=== PATIENT | male | born 1945 | race Caucasian/White ===

== ENCOUNTER 2017-06-12 13:34 | Emergency (ER) | payer MEDICARE, SELFPAY ==
[2017-06-12 13:34] VITALS: BP 164/99; PULSE 128; RESP 20; TEMP 36.9; O2SAT 96; BMI 33.0
--- NOTE | 2017-06-12 13:50 | EKG12_ITS ---
Test Reason : SWELLING Blood Pressure : / mmHG Vent. Rate : 106 BPM Atrial Rate : 111 BPM P-R Int : 000 ms QRS Dur : 066 ms QT Int : 286 ms P-R-T Axes : 000 070 074 degrees QTc Int : 379 ms Atrial fibrillation Abnormal ECG Poor R wave progression Low voltage Confirmed by ROD HUMPHREY ([id number]), publication editor RED CH ([id number]) on 06/14/2017 2:22:15 PM Referred By: BELEM Confirmed By:ROD HUMPHREY
--- NOTE | 2017-06-12 13:50 | RAD_ITS ---
STUDY: X-RAY CHEST REASON FOR EXAM: Male, 72 years old. Increasing shortness of breath. TECHNIQUE: Single AP portable view of the chest. COMPARISON: Comparison is made with prior study dated February 05, 2016. FINDINGS: EKG electrodes are seen. Mild increased markings in the lingular segment of the left upper lobe. This is new as compared to prior study. This may represent atelectasis and/or early infiltrate. There is no demonstrated pleural abnormality. There is mild cardiac enlargement. Normal mediastinum and erika. Normal visualized pulmonary arteries. There is atherosclerotic tortuosity of the aortic arch and descending thoracic aorta. Normal visualized thoracic spine. Normal visualized ribs, clavicles, and shoulders. There is no demonstrated abnormality of the visualized soft tissue structures of the upper abdomen. RAD/Chest 1 View (Portable) IMPRESSION: Increased markings in the lingular segment of the left upper lobe suggestive of a atelectasis and/or infiltrate. Follow-up is recommended. Electronically Signed: Alonso Tristan MD at 14:15 EDT Tel [phone], Service support ,
[2017-06-12 14:13] VITALS: BP 146/107; PULSE 97; RESP 23; O2SAT 97
[2017-06-12 14:16] VITALS: O2SAT 97
[2017-06-12 14:19] LABS: Absolute Lymphocyte Count 1.38 X10^3/ul (0.83-4.51); Absolute Neutrophil Count 6.8 X10^3/uL (2.0-7.7); Basophil# 0.02 X10^3/uL; Basophil% 0.2 % (0-1); Eosinophil# 0.15 X10^3/uL; Eosinophils% 1.6 % (0-5); Hematocrit 40.9 % (40-54); Hemoglobin 13.5 g/dl (13.0-16.5); Lymphocyte # 1.38 X10^3/ul (4.0); Lymphocyte % 15.1 % (19-41); Mean Corpuscular Hgb 30.4 pg (27.0-32.0); Mean Corpuscular Volume 92.1 fL (80-94); Mean Platelet Vol. 10.4 fl (6.2-12.0); Monocyte# 0.76 X10^3/uL; Monocyte% 8.3 % (0-10); Neutrophil % 74.7 % (47-70); Platelet Count 212 K/mm3 (150-450); RBC Distribution Width CV 13.3 % (11.6-14.6); RBC Distribution Width SD 44.2 fl (35.1-43.9); Red Blood Count 4.44 M/mm3 (4.6-6.2); White Blood Count 9.1 K/mm3 (4.4-11.0)
[2017-06-12 14:21] LABS: POSITIVE COUNT NO; POSITIVE DIFFERENTIAL NO; POSITIVE MORPHOLOGY NO
[2017-06-12 14:34] LABS: Anion Gap 7 (5-15); BUN 12 mg/dL (7-18); BUN/Creat Ratio 10.8 RATIO (10-20); Calcium,Total 8.8 mg/dL (8.5-10.1); Chloride 104 mmol/L (98-107); Creatinine, Serum 1.11 mg/dL (0.70-1.30); EST Glomerular Filtration Rate 69 mL/min (>60); Est Glom Filt Rate - Afr Amer 84 mL/min (>60); Estimated Creatinine Clearance 64.07 ml/min; Glucose 169 mg/dL (74-106); Sodium Level 139 mmol/L (136-145)
--- NOTE | 2017-06-12 14:38 | RAD_ITS ---
STUDY: X-RAY CHEST REASON FOR EXAM: Male, 72 years old. Dyspnea and shortness of breath. TECHNIQUE: Lateral view. COMPARISON: Comparison is made with prior study done earlier today. FINDINGS: Mild increased markings in the lingular segment of the left upper lobe. Multilevel disc space narrowing and spondylosis of the thoracic spine. RAD/Chest 1 View IMPRESSION: Increased markings in the lingular segment of the left upper lobe. Electronically Signed: Alonso Tristan MD at 15:08 EDT Tel [phone], Service support ,
[2017-06-12 14:45] LABS: BNP,B-Type NATRIURETIC PEPTIDE 167.8 pg/mL (0-100)
[2017-06-12 15:31] VITALS: BP 159/76; PULSE 61; RESP 21; O2SAT 97
--- NOTE | 2017-06-12 15:34 | ED.DCSUM_ITS ---
- ER Visit Summary Date of Service: 06/12/17 Chief Complaint: Shortness of breath History of Present Illness: The patient is a 72 M who goes to the [facility]. He reports he has shortness of breath began approximate 1 month ago and has been gradually worsening. States that is worsened by exertion or laying flat. Is relieved by rest. He denies any cough, fever, chills, chest pain/pressure/ tightness, or palpitations. He reports that he has had bilateral ankle swelling for the past 3 weeks. Physical Examination: Vitals: Stable. Afebrile. General: Well-nourished and well-developed. Head: Normocephalic atraumatic. Neck: Supple, no lymphadenopathy. No JVD. Nontender. Cardiovascular: Irregular rhythm. No murmurs. Respiratory: No respiratory distress. Mild wheezing bilaterally with decreased air movement. Abdominal: Soft, nontender, nondistended, normal bowel sounds. No guarding, rebound, or peritoneal signs. Back: Nontender. Extremities: Nontender, 2+ pitting edema of his lower extremities bilaterally. Skin: Normal color, no rash. Neurologic: Alert and oriented ?3. Cranial nerves II through XII are intact. Normal strength and sensation. Psych: Normal affect. Test Results: Chest x-ray shows increased markings in the lingular segment of the left upper lobe with a question of atelectasis and/or infiltrate. EKG is A. fib at [address] changes. Troponins negative. PT BILINGUAL HR GENERALIST is minimally elevated at 167.8. Chem-7 more for glucose 169. CBC is marked for 7 neutrophils 75 lymphs lites 15. Emergency Department Course and Treatment: During his stay in the emergency department the patient's heart rate ranged anywhere from the 90s to the 130s. Currently he is on 12.5 mg of Lopressor twice daily. He is already anticoagulated with Pradaxa. He feels well and would like to go home. Treatment Plan: I am unable to reach the patient's primary care physician or mergers and acquisitions attorney at the [facility] He will have his Lopressor increased from 12.5-25 mg twice a day. I suspect that his RVR is actually the source of his lower extremity edema. He is given prescription for Lasix 40 mg a day for the next 5 days. He will also be placed on Zithromax and prednisone for COPD. He is instructed to follow-up with the [facility] soon as possible. Return to the emergency department for any worsening symptoms. Disposition: To home in improved and stable condition. Impression: 1. Atrial fibrillation. 2. Coagulopathy on Pradaxa. 3. COPD exacerbation. 4. Peripheral edema. This note was generated with HipLink dictation software. It may contain incorrect words, spelling, and punctuation that were not noted in review of the chart prior to signing ED Disposition - Plan for ED Patient: Disposition: Home or Assisted Living Chief Complaint: Shortness of Breath Instructions: ED Afib, ED COPD Flare Prescriptions: Azithromycin [Zithromax] 250 mg PO DAILY #6 tablet Furosemide [Lasix] 40 mg PO DAILY #5 tablet Prednisone [Deltasone] 60 mg PO DAILY #15 tablet Metoprolol Tartrate [Lopressor (Beta Zia)] 25 mg PO BID #60 tablet [facility]errals: [facility] [Primary Care Provider] - As soon as possible
[2017-06-12] MEDS: predniSONE 20 MG Tablet 60 MG PO (15:44)
[2017-06-12] MEDS: Metoprolol Tartrate 25 MG Tablet PO (15:44)
[2017-06-12] MEDS: Azithromycin 250 MG Tablet 500 MG PO (15:44)
[2017-06-12 15:46] VITALS: BP 147/90; PULSE 99; RESP 22; O2SAT 96
== END 2017-06-12 15:54 | disposition home or self-care (01) ==
PROVIDERS: Emergency Provider Emergency Medicine
DX: I48.91 Unspecified atrial fibrillation (principal); D68.9 Coagulation defect, unspecified; J44.1 Chronic obstructive pulmonary disease with (acute) exacerbation; R60.9 Edema, unspecified; E11.9 Type 2 diabetes mellitus without complications; I10 Essential (primary) hypertension; E78.00 Pure hypercholesterolemia, unspecified; N40.0 Benign prostatic hyperplasia without lower urinary tract symptoms; Z87.891 Personal history of nicotine dependence
CPT/HCPCS: 71045; 80048; 83880; 84484; 85025; 93005; 99285; A4216

== ENCOUNTER 2017-08-28 20:45 | Emergency (ER) | payer MEDICARE, SELFPAY ==
[2017-08-28 20:46] VITALS: BP 147/99; PULSE 97; RESP 20; TEMP 35.7; O2SAT 97; BMI 33.0
--- NOTE | 2017-08-28 21:11 | ED.DCSUM_ITS ---
- ER Visit Summary Date of Service: 08/28/17 Chief Complaint: Lower extremity swelling History of Present Illness: The patient is a 72 M waxing waning lower extremity swelling over the past 2 months. Chronic shortness of breath due to COPD. No home oxygen. Unclear if history of CHF. Patient was here in March was placed on 3 days of diuretics which did help with symptoms. Last week took his spouse's diuretic for day which did help. However swelling return. No calf pain or thigh pain. No chest pains. No fevers. No cough. Physical Examination: General: Alert and oriented ?3, no acute distress HEENT: Normocephalic, atraumatic. Moist mucosa membranes Neck: supple, nontender. Cardiovascular: Regular rate and rhythm, no murmurs Respiratory: Normal breath sounds, symmetric, no distress Abdomen: Soft, nontender, nondistended Extremities: Nontender, 1+ pitting edema lower extremities, no calf pain, no medial thigh pain., pulses intact ?4 Neuro: no focal neurological deficits. Test Results: Creatinine 1.43. BNP 194. Chest x-ray: No effusion. Emergency Department Course and Treatment: Patient pulses intact distally. Peripheral edema. There is no calf or medial thigh pain for concerns for DVT. He has no risk factors. Intermittent symptoms over the past couple months. Creatinine 1.4. Up from 1.1 previously. Discussed peripheral edema. Start a 5 day course of Lasix. He will call his PCP for follow-up recheck blood work and reevaluation of his symptoms. Treatment Plan: [] Disposition: Discharge Impression: Peripheral edema This note was generated with Worth[employer] dictation software. It may contain incorrect words, spelling, and punctuation that were not noted in review of the chart prior to signing ED Disposition - Plan for ED Patient: Disposition: Home or Assisted Living Chief Complaint: Edema Diagnosis: Peripheral edema Instructions: ED Leg Swelling Bilateral Prescriptions: Furosemide [Lasix] 20 mg PO DAILY #5 tablet [facility]errals[facility] [[facility] - 3-5 Days Additional Instructions: Cr. 1.43.
--- NOTE | 2017-08-28 21:35 | RAD_ITS ---
STUDY: X-RAY CHEST REASON FOR EXAM: Male, 72 years old. Leg swelling shortness of breath TECHNIQUE: PA and lateral views of the chest. COMPARISON: Limited comparison lateral view only June 12, 2017, February 04, 2015 portable examination chest FINDINGS: The lungs are clear and expanded. There is no demonstrated pleural abnormality. There is mild cardiac enlargement. Normal mediastinum and erika. Normal visualized pulmonary arteries. Normal visualized aortic arch and descending thoracic aorta. There are diffuse degenerative changes of the visualized thoracic spine. Normal visualized ribs, clavicles, and shoulders. There is no demonstrated abnormality of the visualized soft tissue structures of the upper abdomen. RAD/Chest PA and Lateral IMPRESSION: Degenerative changes, as described above. No demonstrated acute cardiopulmonary process. Electronically Signed: Jenny Russell MD at 22:31 EDT Tel , Service support ,
[2017-08-28 21:40] LABS: Anion Gap 8 (5-15); BUN 20 mg/dL (7-18); Calcium,Total 9.3 mg/dL (8.5-10.1); Chloride 102 mmol/L (98-107); Creatinine, Serum 1.43 mg/dL (0.70-1.30); EST Glomerular Filtration Rate 52 mL/min (>60); Est Glom Filt Rate - Afr Amer 63 mL/min (>60); Estimated Creatinine Clearance 49.73 ml/min; Glucose 127 mg/dL (74-106); Potassium 3.7 mmol/L (3.5-5.1); Sodium Level 141 mmol/L (136-145)
[2017-08-28 22:35] VITALS: BP 135/71; PULSE 67; O2SAT 94
== END 2017-08-28 22:38 | disposition home or self-care (01) ==
PROVIDERS: Emergency Provider Emergency Medicine
DX: R60.9 Edema, unspecified (principal); E78.00 Pure hypercholesterolemia, unspecified; J44.9 Chronic obstructive pulmonary disease, unspecified; I10 Essential (primary) hypertension; E11.9 Type 2 diabetes mellitus without complications; N40.0 Benign prostatic hyperplasia without lower urinary tract symptoms; R06.00 Dyspnea, unspecified; Z87.891 Personal history of nicotine dependence
CPT/HCPCS: 71046; 80048; 83880; 99284; A4216

== ENCOUNTER 2017-11-13 15:37 | Emergency (ER) | payer MEDICARE, SELFPAY ==
[2017-11-13] VITALS (9 sets, daily range): BP systolic 135–220; BP diastolic 85–174; PULSE 115–169; RESP 14–21; TEMP 37.2; O2SAT 97–99; BMI 34.0
--- NOTE | 2017-11-13 15:44 | CT_ITS ---
STUDY: CTA NECK WITH CONTRAST REASON FOR EXAM: Male, 72 years old. CVA blurred vision dizziness RADIATION DOSAGE (If Supplied By Facility): CTDIvol = ( 29.06 ) mGy, DLP = ( 822.73 ) mGycm TECHNIQUE: CT angiography with multi-detector data acquisition was performed from the aortic arch to the skull base following intravenous administration of 75 ml of Isovue 370 contrast. MIP images were reconstructed from the axial data set. Post-processing of the angiographic images was performed, with multiplanar reformation and 3D reconstruction. Individualized dose optimization techniques were used for this CT. COMPARISON: None. FINDINGS: AORTIC ARCH: There is partial calcification of the aortic arch. There is normal anatomic origins partially calcified left subclavian takeoff. RIGHT CAROTID ARTERIES: There is atherosclerotic tortuous elongation of the right common carotid artery. Normal right common carotid bulb. Normal origin of the right internal carotid (ICA) artery without a hemodynamically significant stenosis. There is atherosclerotic tortuous elongation of the cervical portion of the right internal carotid artery. Normal origin of the right external carotid artery (ECA). LEFT CAROTID ARTERIES: Normal left common carotid artery (CCA). There is moderate atherosclerotic plaque formation with moderate narrowing of the carotid bulb. There is mild atherosclerotic plaque formation of the origin of the left internal carotid artery with less than 50% cross sectional diameter stenosis. There is atherosclerotic tortuous elongation of the cervical portion of the left internal carotid artery. Normal origin of the left external carotid artery (ECA). VERTEBRAL ARTERIES: There is a diminutive appearance of the right-sided distal vertebral artery. There is a tortuous appearance of the distal cervical portion of the right vertebral artery. There is a hairpin turn in the proximal left vertebral artery which can cause stenosis. CT/CTA Neck W/WO Contrast IMPRESSION: Less than 50% stenosis of the left side internal carotid artery. Diminutive distal right vertebral artery. No significant stenosis of the right internal carotid artery. Electronically Signed: Jenny Russell MD at 17:16 EDT Tel , Service support ,
--- NOTE | 2017-11-13 15:44 | CT_ITS ---
STUDY: CT BRAIN WITHOUT CONTRAST REASON FOR EXAM: Male, 72 years old. Possible CVA. RADIATION DOSAGE (If Supplied By Facility): CTDIvol = ( 44.99 ) mGy, DLP = ( 745.49 ) mGycm TECHNIQUE: Transaxial CT imaging of the brain was performed without administration of intravenous contrast material. Individualized dose optimization techniques were used for this CT. COMPARISON: None. FINDINGS: Normal soft tissue structures. Normal calvarium. There is mild cerebral atrophy with widening of the extra-axial spaces and ventricular dilatation. There is loss of the sulcal markings in the left temporoparietal lobe. Early infarct should be ruled out. Normal basal ganglia and thalami. Normal brainstem. Normal cerebellum. There is no intracranial hemorrhage. There are no findings of an acute ischemic infarction. Mucosal polyp or retention cyst in the inferior aspect of the right maxillary sinus. CT/Brain/Head without Contrast IMPRESSION: Chronic involutional changes of the brain. Findings suggestive of early ischemic change in the left temporal parietal lobe. N.B. : The above information has been verbally conveyed by Alonso Tristan MD to Juan Antonio Feliz on 11/13/2017 16:02:45 (ET). Electronically Signed: Alonso Tristan MD at 16:02 EDT Tel [phone], Service support ,
--- NOTE | 2017-11-13 15:44 | EKG12_ITS ---
Test Reason : NEURO Blood Pressure : / mmHG Vent. Rate : 140 BPM Atrial Rate : 090 BPM P-R Int : 000 ms QRS Dur : 062 ms QT Int : 302 ms P-R-T Axes : 000 063 -71 degrees QTc Int : 461 ms Atrial fibrillation with rapid ventricular response Low voltage QRS Septal infarct , age undetermined Abnormal ECG Confirmed by BHARATHI DA SILVA, RUDI ([id number]), city editor RED CH ([id number]) on 11/15/2017 1:13:07 PM Referred By: KAM Confirmed By:RUDI GARVIN MD
--- NOTE | 2017-11-13 15:44 | CT_ITS ---
STUDY: CTA OF THE BRAIN REASON FOR EXAM: Male, 72 years old. CVA blurred vision dizziness RADIATION DOSAGE (If Supplied By Facility): CTDIvol = ( 29.06 ) mGy, DLP = ( 822.73 ) mGycm TECHNIQUE: CT angiography was performed with a multi-detector CT scanner. Data acquisition was obtained from the skull base through the vertex following intravenous administration of ml of . MIP images were reconstructed from the axial data set. Post-processing of the angiographic images was performed, with multiplanar reformation and 3D reconstruction. Individualized dose optimization techniques were used for this CT. COMPARISON: CT head November 13, 2017 FINDINGS: Normal bilateral petrous carotid arteries. There is calcified plaque formation of the right cavernous carotid artery, without a cross-sectional luminal stenosis. There is calcified plaque formation of the left cavernous carotid artery, without a cross-sectional luminal stenosis. The right A1 is not visualized. The right-sided A2 extends from the left side. This may indicate hypoplasia or absence of the right-sided A1 segment. Normal left A1 segments of the anterior cerebral artery. There is non-visualization of the anterior communicating artery (ACOM). As mentioned above the left-sided tube is extending with the right from the left side of the circulation. Normal right M1 and M2 segments of the middle cerebral arteries, with a normal M1 bifurcation. Normal left M1 and M2 segments of the middle cerebral arteries, with a normal M1 bifurcation. There is non-visualization of the right posterior communicating artery (PCOM). The left side posterior communicating artery is hypoplastic. There is a small tortuous right vertebral artery and a dominant left vertebral artery. There is a contrasted appearance of the proximal basilar artery however there is no contrast within the distal basilar artery. There is a contrasted appearance of the bilateral posterior cerebellar arteries which may be reconstituted from smaller vessels. There is contrast in the right-sided superior cerebellar artery with a limited visualization of the left-sided superior cerebellar artery. Normal mid and distal bilateral P1, P2 and visualized P3 segments of the posterior cerebral arteries. The proximal bilateral cerebral arteries show diminished contrast enhancement and may be partially thrombosed or stenotic allowing for the technique. There is abrupt cut off of the basilar artery is seen on multiple views. There is no demonstrated aneurysm of the [place]. There is fairly well circumscribed low attenuation within the periphery of the left cerebellum with lesser well-circumscribed low attenuation more medial within the cerebellum. 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 Minimal atherosclerotic disease of the cerebral vessels. 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 There is age indeterminant low attenuation in the left cerebellum infarct or represent atrophy and/or prior ischemic change. Recommend follow-up MRI. N.B. : The above information has been verbally conveyed by Jenny Russell MD to Juan Antonio Feliz MD, , on 11/13/2017 17:47:00 (ET). Electronically Signed: Jenny Russell MD at 17:10 EDT Tel , Service support ,
--- NOTE | 2017-11-13 15:53 | CM.ED ---
Social Work Note Stroke alert called. SW met with pt's . Introduced self and role. Offered support. declines to have SW contact any family or other supports at this time. Made aware that SW is available if needs arise. Chari Shin, CARPENTER ASSEMBLER, CAR LUBRICATOR
[2017-11-13] MEDS: LORazepam 2 MG/ML Syringe IV (16:04)
--- NOTE | 2017-11-13 16:09 | NURSING ---
[id number] STROKE ALERT CALLED
[2017-11-13 16:11] LABS: Bedside Glucose 196 mg/dL (70-110)
--- NOTE | 2017-11-13 16:13 | MRI_ITS ---
STUDY: MRI BRAIN WITHOUT CONTRAST REASON FOR EXAM: Male, 72 years old. Seizure TECHNIQUE: Standardized multiplanar fat and water weighted pulse sequences were obtained. COMPARISON: None. FINDINGS: Limited study was performed due to patient condition and difficulty cooperating during study. Mild atrophy and periventricular white matter disease.. On the diffusion weighted imaging sequence there appears to be increased signal intensity within the thalamic nuclei bilaterally and left midbrain in the midline demonstrating low signal intensity on the ADC map consistent with restricted diffusion and acute ischemic changes There also appear to be similar changes within the right parietal lobe. Normal bilateral basal ganglia. There is no extra-axial fluid accumulation. Normal flow voids within the major intracranial circulation suggesting patency by spin echo criteria. Normal sella turcica, pituitary gland, infundibular stalk, optic chiasm and hypothalamus. Normal tectal plate and pineal gland. Normal midbrain, and medulla. Normal cerebellum. Normal basal cisterns. Normal bilateral temporal bones. Normal bilateral internal auditory canals. No demonstrated orbital abnormality, within the constraints of a routine brain study. Small mucous retention cyst in right maxillary sinus. Mild mucosal thickening within the ethmoid air cells bilaterally.. Normal calvarium and skull base. Normal visualized soft tissue structures. Normal visualized upper cervical spine. MRI/Brain without Contrast IMPRESSION: Limited study due to artifact. Findings suggestive of acute ischemic changes within the thalamic nuclei bilaterally and left brainstem as well as the right parietal lobe.. Clinical correlation is recommended Electronically Signed: Karan Tapia MD at 17:55 EDT , Service support ,
[2017-11-13 16:27] LABS: Absolute Lymphocyte Count 2.04 X10^3/ul (0.83-4.51); Absolute Neutrophil Count 3.8 X10^3/uL (2.0-7.7); Basophil# 0.01 X10^3/uL; Basophil% 0.2 % (0-1); Eosinophil# 0.15 X10^3/uL; Eosinophils% 2.3 % (0-5); Hematocrit 38.9 % (40-54); Hemoglobin 12.8 g/dl (13.0-16.5); Lymphocyte # 2.04 X10^3/ul (4.0); Lymphocyte % 31.4 % (19-41); Mean Corp Hgb Conc 32.9 g/gl (32-36); Mean Corpuscular Hgb 30.4 pg (27.0-32.0); Mean Corpuscular Volume 92.4 fL (80-94); Mean Platelet Vol. 10.2 fl (6.2-12.0); Monocyte# 0.53 X10^3/uL; Monocyte% 8.2 % (0-10); Neutrophil # 3.76 X10^3/uL (2.7-7.7); Neutrophil % 57.7 % (47-70); Platelet Count 159 K/mm3 (150-450); RBC Distribution Width CV 13.4 % (11.6-14.6); RBC Distribution Width SD 45.2 fl (35.1-43.9); Red Blood Count 4.21 M/mm3 (4.6-6.2); White Blood Count 6.5 K/mm3 (4.4-11.0)
[2017-11-13 16:30] LABS: POSITIVE COUNT NO; POSITIVE DIFFERENTIAL NO; POSITIVE MORPHOLOGY NO
--- NOTE | 2017-11-13 16:33 | CHAPLAIN ---
Type of Pastoral Visit ___ Initial Visit ___ Follow-up Visit ___ On-call Visit ___ General Patient Visit ___ Spiritual Assessment ___ Family Conference ___ Bereavement _x__ Rapid Response ___ Code Blue ___ Other (describe below) Pastoral Care Referral From ___ Patient ___ Family ___ Nurse ___ Physician ___ Commercial Lines Manager ___ Grain Drier _x__ Other (describe below) Sacrament/Intervention _x__ Active listening ___ Anointing ___ Congregational ___ Bereavement ___ Communion ___ [place] exploration ___ ___ Life review _x__ Prayer ___ Reconciliation ___ Sacrament of Sick _x__ Supportive presence ___ Wedding ___ Other (describe below) Pastoral Comments stroke alert response; sat with spouse during wait for testing and as doctors diagnosed and explained situation; spouse welcomed prayer as supportive activity during this time; other family members arrived and introduced to support
--- NOTE | 2017-11-13 16:38 | PCM.CONS.GEN ---
Reason for Consult Date of Consultation: 11/13/17 Reason for Consultation: stroke team History of Present Illness: The patient is a 72 year old male who called his with complaints of feeling nonspecifically abnormal sometime between 12 noon and 3 pm today, she recommended he call the squad. otherwise last known well was sometime earlier this morning, more than 6 hrs ago, however the patient is now somnolent and the is unable to further specify time of onset. ER staff reports after the CT scan he became hypersomnolent and right sided twicthing was noted, leading to iv ativan, 2mg for possible sz. family reports no history of seizure, stroke, head injury or meningitis in the past. he is on pradaxa, although last dose is unknown. ER staff reports language was abnormal prior to onset of somnolence and eyes were deviated to the right. Past Medical History Allergies No Known Allergies Allergy (Verified 08/28/17 20:48) Home Medications: Ambulatory Orders Medication Instructions Recorded Dabigatran Etexilate Mesylate 150 mg PO BID@0600,1800 02/05/16 [Pradaxa] Metformin HCl [Glucophage] 1,000 mg PO BIDCM 02/05/16 Metoprolol Tartrate [Lopressor 12.5 mg PO BID 02/05/16 (Beta Zia)] Tamsulosin HCl [Flomax] 0.8 mg PO DAILY 02/05/16 Albuterol Inhaler [Ventolin Hfa 2 puff INHALATION PRN PRN 06/12/17 (SP)] Atorvastatin Calcium 40 mg PO QHS 06/12/17 Budesonide/Formoterol 160/4.5 2 puff INHALATION BID 06/12/17 [Symbicort 160/4.5 Mcg Inhaler (SP)] Lisinopril [Zestril] 2.5 mg PO QHS 06/12/17 Metoprolol Tartrate [Lopressor 25 mg PO BID #60 tablet 06/12/17 (Beta Zia)] Furosemide [Lasix] 20 mg PO DAILY #5 tablet 08/28/17 Glipizide 5 mg PO BID 08/28/17 Smoking Status: Former smoker Review of Systems Unable to obtain accurate/complete ROS d/t: pt hypersomnolent. no recent illness per . Objective: no response to voice sonorous respirations pupils equal no response to visual threat symmetric grimmace to jaw lift withdraws x4 to nailbed pressure - Physical Exam Vital Signs Temp Pulse Resp BP Pulse Ox 37.2 C 147 H 21 H 172/106 H 97 11/13/17 15:39 11/13/17 16:05 11/13/17 16:05 11/13/17 16:05 11/13/17 16:05 Oxygen Flow Rate (L/min) 2 Oxygen Delivery Method Nasal Cannula Weight: 107.7 kg Body Mass Index (BMI) 34.0 Finger Stick Blood Glucose 196 Laboratory Tests Past 24 Hrs 11/13/17 11/13/17 11/13/17 16:00 16:00 16:00 WBC 6.5 RBC 4.21 L Hgb 12.8 L Hct 38.9 L MCV 92.4 MCH 30.4 MCHC 32.9 RDW 13.4 RDW Differential 45.2 H Plt Count 159 MPV 10.2 Immature Gran % (Auto) 0.200 Neut % (Auto) 57.7 Lymph % (Auto) 31.4 [place] % (Auto) 8.2 Eos % (Auto) 2.3 Baso % (Auto) 0.2 Absolute Neuts (auto) 3.8 Absolute Lymphs (auto) 2.04 Total Counted Not Reportable PT Pending INR Pending APTT Pending Sodium Pending Potassium Pending Chloride Pending Carbon Dioxide Pending Anion Gap Pending BUN Pending Creatinine Pending Est GFR (MDRD) Af Amer Pending Est GFR (MDRD) Non-Af Pending BUN/Creatinine Ratio Pending Glucose Pending Calcium Pending Troponin I Pending POC Glucose 11/13/17 16:04 POC Glucose [address] reviewed, no acute cta reviewed, no stenosis Assessment/Plan a/p Seizure vs cva not tpa candidate due to unknown last well, unknown last pradaxa dose, and suspected seizure agree with keppra load stat mri brain eeg cpk lactate likely will need icu obs
[2017-11-13 16:41] LABS: Anion Gap 8 (5-15); BUN 19 mg/dL (7-18); BUN/Creat Ratio 14.6 RATIO (10-20); Calcium,Total 8.5 mg/dL (8.5-10.1); Chloride 102 mmol/L (98-107); EST Glomerular Filtration Rate 58 mL/min (>60); Est Glom Filt Rate - Afr Amer 70 mL/min (>60); Estimated Creatinine Clearance 53.03 ml/min; Glucose 201 mg/dL (74-106); Potassium 4.2 mmol/L (3.5-5.1); Sodium Level 138 mmol/L (136-145)
--- NOTE | 2017-11-13 16:51 | ED.RN ---
PT TO MRI AT 1648
[2017-11-13 16:55] LABS: International Normalized Ratio 1.1; Prothrombin Time (Protime)PT. 14.3 SECONDS (11.7-14.9)
[2017-11-13 16:56] LABS: Partial Thromboplast Time 29.3 Seconds (24.1-36.2)
[2017-11-13 17:11] LABS: CPK Total, Creatine Kinase 124 U/L (39-308); LDH 173 U/L (87-241)
--- NOTE | 2017-11-13 17:38 | NURSING ---
[facility]
[2017-11-13] MEDS: levETIRAcetam IV 1,000 MG/100 ML BAG 400 MG IV (17:41)
--- NOTE | 2017-11-13 17:43 | ED.RN ---
DECISION TO INTUBATE MADE BY DR HUMPHREY AFTER RETURNING FROM MRI, WITH POSSIBLE BASILAR OCCULSION.
[2017-11-13] MEDS: Etomidate 20 MG/10 ML Vial 30 MG IV (17:52)
[2017-11-13] MEDS: Rocuronium Bromide 50 MG/5 ML Vial 100 MG IV (17:53)
[2017-11-13] MEDS: Propofol 10MG/Ml 1,000 MG/100 ML Bottle 3.231 MG CONT INF (17:54)
--- NOTE | 2017-11-13 18:07 | NURSING ---
ACCEPTED AT [facility]. THEY ARE SENDING THEIR CHOPPER
--- NOTE | 2017-11-13 18:09 | NURSING ---
[email or web address] WILL BE HERE IN 30 MIN GOING ER TO ER REPORT [facility] [phone]
--- NOTE | 2017-11-13 18:15 | RAD_ITS ---
STUDY: X-RAY CHEST REASON FOR EXAM: Male, 72 years old. Endotracheal tube placement TECHNIQUE: Single AP portable view of the chest. COMPARISON: August 28, 2017 chest x-ray FINDINGS: There is an endotracheal tube present 3.6 cm above the eyad. There is an NG tube present the tip is in the stomach. There is a small focus of opacity just above the left-sided hemidiaphragm. Interstitial markings are mildly prominent similar to prior study. There is no demonstrated pleural abnormality. There is mild cardiac enlargement. Normal mediastinum and erika. Normal visualized pulmonary arteries. Normal visualized aortic arch and descending thoracic aorta. There are diffuse degenerative changes of the visualized thoracic spine. Normal visualized ribs, clavicles, and shoulders. There is no demonstrated abnormality of the visualized soft tissue structures of the upper abdomen. RAD/Chest 1 View IMPRESSION: Lines as detailed above in satisfactory position. Left lower lobe atelectasis and/or focal infiltrate. Electronically Signed: Jenny Russell MD at 18:50 EDT Tel , Service support ,
--- NOTE | 2017-11-13 18:19 | RAD_ITS ---
STUDY: X-RAY - ABDOMEN/PELVIS REASON FOR EXAM: Male, 72 years old. NG tube placement TECHNIQUE: Single AP view of the abdomen. COMPARISON: None. FINDINGS: Single image of the upper abdomen the level of the diaphragms demonstrates an NG tube with the tip in the stomach. RAD/Abdomen Single View (Portable) IMPRESSION: NG tube tip in the stomach. Electronically Signed: Jenny Russell MD at 18:46 EDT Tel , Service support ,
--- NOTE | 2017-11-13 18:41 | ED.VISSUMM ---
- ER Visit Summary Date of Service: 11/13/17 Chief Complaint: Neurologic symptoms History of Present Illness: The patient is a 72 M presenting for evaluation due to concern for the possibility stroke. Patient's last known normal was 40 minutes prior to arrival. Patient had a sudden onset of visual disturbances facial droop and speech difficulty. Patient has a history of A. fib diabetes hypertension high cholesterol CHF. He has no prior history of stroke or intracranial hemorrhage or severe head injury. Patient is on anticoagulation, unsure of his last dose. Physical Examination: Vital signs notable heart rate of 147, blood pressure 172/106. Well-nourished male, PRL, there is evidence of a left eye gaze palsy as the patient will not move his eye past the midline. Patient has right-sided facial droop. Patient has expressive aphasia as well as severe dysarthria. Patient's NIH stroke scale is an 8 Test Results: CT brain shows potential left-sided ischemic changes. CTA of the head and neck shows a basilar artery thrombus, MRI shows multiple areas of ischemia, EKG shows atrial fibrillation with a rate of [address] segments normal T waves. CBC, chemistry, coagulation studies, troponin are negative Emergency Department Course and Treatment: Patient presented for evaluation secondary to strokelike symptoms. Immediately upon evaluation of this patient at the bedside I activated a stroke team. Patient was taken promptly down to CT for both contrasted and noncontrasted images of the brain. Nursing staff reports to me that while the patient was on the CT table he developed some right-sided myoclonic jerks, and upon my reevaluation of the patient after he gets back from CT he appears to be postictal now with snoring respirations and some decreased mental status. On his initial present and he was able to attempt to talk to me, now he is so sedate that he wanted to talk and only withdraws to noxious stimuli. Neurology is at the bedside, they feel that this is potentially more of a presentation of a seizure initially, and recommended stat MRI to be performed. Patient was given Ativan in the emergency department and a loading dose of Keppra was ordered. Patient does not meet criteria for TPA as he is on Pradaxa, as well as the fact that he had a seizure. MRI shows multiple areas of ischemia, and a CTA is ended up reading as showing a basilar artery thrombus. I discussed this with Dr. Cole who recommended transfer to a tertiary care center for possible endovascular retrieval. Patient continues to have sonorous respirations, no concern for airway compromise so the decision was made to perform RSI on this patient. Patient was given etomidate and rocuronium. Brian 4 blade was used and a 8 oh tube was passed through the cords with good color change positive bilateral breath sounds and confirmation on chest x-ray. Patient was accepted at [facility] and was transported by helicopter. He did develop some hypertension was given 10 of labetalol which improved his hypertension. Patient was transferred in critical condition. Disposition: Transfer Impression: 1. 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 It may contain incorrect words, spelling, and punctuation that were not noted in review of the chart prior to signing ED Disposition - Plan for ED Patient: Disposition: Home or Assisted Living Chief Complaint: Neuro S/Sx [facility] [Primary [facility] Provider] -
== END 2017-11-13 19:12 | disposition home or self-care (01) ==
PROVIDERS: Psychiatry & Neurology Neurology; Emergency Provider Emergency Medicine
DX: I63.02 Cerebral infarction due to thrombosis of basilar artery (principal); I10 Essential (primary) hypertension; E11.9 Type 2 diabetes mellitus without complications; E78.00 Pure hypercholesterolemia, unspecified; I50.9 Heart failure, unspecified; I48.91 Unspecified atrial fibrillation; Z87.891 Personal history of nicotine dependence
CPT/HCPCS: 31500; 70450; 70496; 70498; 70551; 71045; 74018; 80048; 82550; 82962; 83615; 84484; 85025; 85610; 85730; 93005; 94002; 99251; 99285; J7030; Q9967; A4216; G0463